=== PATIENT | female | born 1950 | race Caucasian/White ===

== ENCOUNTER 2021-12-18 17:50 | Emergency (ER) | payer OTHER, MEDICARE ==
[2021-12-18 18:19] VITALS: BP 138/80; PULSE 84; TEMP 99.3; BMI 20.9
== END 2021-12-18 18:41 | disposition home or self-care (01) ==
LOC: FER 17:50
DX: S09.90XA Unspecified injury of head, initial encounter (principal); V18.0XXA Pedal cycle driver injured in noncollision transport accident in nontraffic accident, initial encounter
CPT/HCPCS: 99281-25